=== PATIENT | male | born 1990 | race Caucasian/White ===

== ENCOUNTER 2017-06-30 05:30 | Emergency (ER) | payer OTHER ==
[~2017-06-30] VITALS: Ht 170.2 cm; Wt 130.0 kg
[2017-06-30 05:35] VITALS: O2SAT 100
[2017-06-30 05:51] LABS: AUTOMATED NEUTROPHIL # 11.5 TH/MM3 (1.8-7.7); BASOPHIL # 0.1 TH/MM3 (0-0.2); BASOPHIL % 0.4 % (0.0-2.0); EOSINOPHIL # 0.1 TH/MM3 (0-0.4); EOSINOPHIL % 0.9 % (0.0-4.0); HEMATOCRIT 44.4 % (39.0-51.0); LYMPH % 18.5 % (9.0-44.0); LYMPHOCYTE # 2.8 TH/MM3 (1.0-4.8); MEAN CORPUSCULAR HEMOGLOBIN 26.2 PG (27.0-34.0); MEAN CORPUSCULAR HGB CONC 32.4 % (32.0-36.0); MONO % 5.5 % (0.0-8.0); NEUT % 74.7 % (16.0-70.0); PLATELET COUNT 316 TH/MM3 (150-450); RED BLOOD COUNT 5.48 MIL/MM3 (4.50-5.90); WHITE BLOOD COUNT 15.4 TH/MM3 (4.0-11.0)
[2017-06-30 05:53] LABS: HEMO FLAGS AUTO DIFF
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
[2017-06-30 06:03] LABS: PROTHROMBIN TIME - PATIENT 10.7 SEC (9.8-11.6)
[2017-06-30 06:04] VITALS: BP 110/54; PULSE 111; RESP 18; O2SAT 97
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
[2017-06-30] MEDS ORDERED: CYCL1TAB29 PO (07:21)
[2017-06-30] MEDS ORDERED: IBUP-1129 PO (07:21)
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
[2017-06-30 07:28] LABS: BANDS 4 % (0-6); BASOPHILS 1 % (0-2); METAMYELOCYTES 2 % (0-1); MYELOCYTES 4 % (0-0); NEUTROPHIL # MANUAL DIFF 11.4 TH/MM3 (1.8-7.7); PLATELET ESTIMATE SMEAR NORMAL (NORMAL); PLATELET MORPHOLOGY NORMAL (NORMAL); POLYS (SEG NEUTROPHILS) 64 % (16-70); SCAN/DIFF FINAL DIFF MANUAL; WBC DIFF SAMPLE 100
[2017-06-30 08:00] VITALS: PULSE 108; RESP 20; TEMP 98.8
[2017-06-30 08:03] VITALS: BP 104/57; PULSE 104; RESP 20; TEMP 98.8; O2SAT 98
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
== END 2017-06-30 15:03 | disposition home or self-care (01) ==
LOC: NEPE 05:30 → EDBD 05:30 → NEPE 15:03
DX: S00.91XA Abrasion of unspecified part of head, initial encounter (principal); S80.812A Abrasion, left lower leg, initial encounter; S80.811A Abrasion, right lower leg, initial encounter; F10.129 Alcohol abuse with intoxication, unspecified; V49.9XXA Car occupant (driver) (passenger) injured in unspecified traffic accident, initial encounter; Y92.410 Unspecified street and highway as the place of occurrence of the external cause; Y90.6 Blood alcohol level of 120-199 mg/100 ml
CPT/HCPCS: 70450; 71010; 72125; 72170; 73590; 80307; 82435; 82565; 82947; 84132; 84295; 84520; 85007; 85027; 85610; 85730; 86850; 86900; 86901; 99285